=== PATIENT | male | born 1975 | race Caucasian/White ===

== ENCOUNTER 2023-04-23 14:51 | Emergency (ER) | payer OTHER ==
[~2023-04-23] VITALS: Ht 180.3 cm; Wt 72.0 kg
[2023-04-23 14:53] VITALS: TEMP 98.2
[2023-04-23] MEDS ORDERED: LIDO700A30 TP (15:21)
[2023-04-23] MEDS ORDERED: NAPR-1025 PO (15:21)
[2023-04-23] MEDS ORDERED: KETOROLAC TROMETHAMINE 30 MG/ML VIAL IM ONE (16:15)
[2023-04-23 16:20] VITALS: BP 142/86; PULSE 78; RESP 18
[2023-04-23] MEDS ORDERED: AMOX250C4 PO (16:21)
[2023-04-23] MEDS ORDERED: HYDR-4723 PO (16:22)
== END 2023-04-23 16:32 | disposition home or self-care (01) ==
LOC: EMS 14:54
DX: K08.89 Other specified disorders of teeth and supporting structures (principal)
CPT/HCPCS: 99283; 96372; J1885

== ENCOUNTER 2023-04-25 11:28 | Emergency (ER) | payer OTHER ==
[~2023-04-25] VITALS: Ht 175.3 cm; Wt 68.2 kg
[~2023-04-25 11:28] MED LIST: AMOX250C4 PO; HYDR-4723 PO; LIDO700A30 TP; NAPR-1025 PO
[2023-04-25 11:32] VITALS: TEMP 98
[2023-04-25 12:16] VITALS: BP 128/85; PULSE 78; RESP 16
[2023-04-25] MEDS ORDERED: PERCT PO ×2 (12:24→12:34)
== END 2023-04-25 13:21 | disposition home or self-care (01) ==
LOC: EMS 11:28
DX: K08.89 Other specified disorders of teeth and supporting structures (principal); Z76.0 Encounter for issue of repeat prescription
CPT/HCPCS: 99281; Z7502

== ENCOUNTER 2023-06-08 11:00 | Inpatient (IN) | payer MEDICAID, OTHER ==
[~2023-06-08] VITALS: Ht 180.3 cm; Wt 77.8 kg
[~2023-06-08 11:00] MED LIST changes: +PERCT PO
[2023-06-08 11:45] LABS: BASOPHILS % (AUTO) 1.8 % (0.0-2.0); EOSINOPHILS % (AUTO) 2.2 % (1.0-6.0); HEMOGLOBIN 9.5 g/dL (13.5-17.5); LYMPHOCYTES # (AUTO) 1.4 K/uL (1.0-4.8); LYMPHOCYTES % (AUTO) 29.1 % (22.0-44.0); MEAN CORPUSCULAR HGB CONC 28.9 G/dL (31.0-37.0); MEAN CORPUSCULAR VOLUME 66 fL (80-100); MONOCYTES # (AUTO) 0.4 K/uL (0.1-1.0); MONOCYTES % (AUTO) 8.3 % (2.0-9.0); NEUTROPHILS # (AUTO) 2.8 K/uL (1.8-7.7); NEUTROPHILS % (AUTO) 58.6 % (40.0-70.0); PLATELET COUNT (AUTO) 270 K/uL (150-450); RED BLOOD CELL COUNT(AUTO) 5.03 MIL/uL (4.50-5.90); RED CELL DISTRIBUTION WIDTH 22.6 % (11.5-14.5); WHITE BLOOD COUNT (AUTO) 4.8 K/uL (4.5-11.0)
[2023-06-08 11:53] LABS: ANION GAP 8 mmol/L (8-16); CALCIUM, TOTAL 8.9 mg/dL (8.8-10.5); CARBON DIOXIDE 28 mmol/L (22-29); CHLORIDE 105 mmol/L (98-107); CREATININE 0.99 mg/dL (0.60-1.30); GLOMERULAR FILTR. RATE CALC > 60 mL/min (>60); GLUCOSE,RANDOM 92 mg/dL (70-110); POTASSIUM 3.4 mmol/L (3.5-5.1); SODIUM SERUM 141 mmol/L (136-145); UREA NITROGEN, BLOOD 9 mg/dL (7-18)
[2023-06-08 12:00] LABS: ALANINE AMINOTRANSFERASE 25 U/L (12-78); ALBUMIN 3.4 g/dL (3.4-5.0); ALKALINE PHOSPHATASE 121 U/L (46-116); ASPARTATE AMINOTRANSFERASE 20 U/L (15-37); BILIRUBIN,TOTAL 0.5 mg/dL (0.1-1.0); CREATINE KINASE, TOTAL ONLY 51 U/L (39-308); TOTAL PROTEIN, SERUM 7.2 g/dL (6.4-8.2)
[2023-06-08 12:01] LABS: TROPONIN I-HIGH SENSITIVITY 4 ng/L (<76)
[2023-06-08 12:02] LABS: INR 1.1 (0.9-1.1)
[2023-06-08 12:05] LABS: RBC MORPHOLOGY COMMENT ABNORMAL RBC MORPH
[2023-06-08 12:11] LABS: ACETAMINOPHEN < 2 mcg/mL (10-30)
[2023-06-08 12:13] LABS: ALCOHOL, BLOOD (SERUM) < 3 mg/dL (0-10)
[2023-06-08 12:15] LABS: COVID AG,FIA SOURCE NASAL SWAB
[2023-06-08] MEDS ORDERED: KETOROLAC TROMETHAMINE 30 MG/ML VIAL IVP ONE (12:15)
[2023-06-08 12:24] LABS: SALICYLATE 0.8 mg/dL (2.8-20.0)
[2023-06-08] MEDS: KETOROLAC TROMETHAMINE 30 MG/ML VIAL IM ONE (12:32)
[2023-06-08 12:48] LABS: SARS-COV2 (COVID) ANTIGEN,FIA Negative (Negative)
[2023-06-08] MEDS: LORazepam 2 MG TABLET PO ONE (13:03)
[2023-06-08] MEDS: ACETAMINOPHEN 325 MG TABLET PO PRN (16:22)
[2023-06-08] MEDS: LORazepam 2 MG TABLET PO PRN (16:22)
[2023-06-08] MEDS: POTASSIUM CHLORIDE 20 MEQ ER TABLET PO ONE (16:38)
[2023-06-08 20:19] VITALS: BP 142/85; PULSE 97; RESP 18; TEMP 97.6; O2SAT 100
[2023-06-08] MEDS: ZOLPIDEM TARTRATE 10 MG TABLET PO PRN (21:41)
[2023-06-08] MEDS: HALOPERIDOL 5 MG TABLET PO PRN (21:42)
[2023-06-08] MEDS ORDERED: BENZOCAINE/MENTHOL LOZENGE PO PRN (21:45)
[2023-06-08] MEDS ORDERED: BACITRACIN 28 GM OINTMENT TP PRN (21:45)
[2023-06-08] MEDS ORDERED: CloNIDine HCL 0.1 MG TABLET PO PRN (21:45)
[2023-06-08] MEDS ORDERED: ALBUTEROL SULFATE HFA 90 MCG/PUFF 8 GM INHALER IH PRN (21:45)
[2023-06-08] MEDS ORDERED: OMEPRAZOLE 20 MG CAPSULE PO PRN (21:45)
[2023-06-08] MEDS ORDERED: MAGNESIUM HYDROXIDE SUSPENSION 30 ML UDCUP PO PRN (21:45)
[2023-06-08] MEDS ORDERED: PETROLATUM,WHITE 28 GM JELLY TP PRN (21:45)
[2023-06-08] MEDS ORDERED: ONDANSETRON HCL 4 MG TABLET PO PRN (21:45)
[2023-06-08] MEDS ORDERED: DOCUSATE SODIUM 100 MG CAPSULE PO PRN (21:45)
[2023-06-08] MEDS ORDERED: ACETAMINOPHEN 325 MG TABLET PO PRN (21:45)
[2023-06-08 23:20] VITALS: RESP 18
[2023-06-08] MEDS: IBUPROFEN 600 MG TABLET PO PRN (23:26)
[2023-06-09 00:20] VITALS: RESP 18
[2023-06-09] MEDS: MULTIVITAMINS WITH MINERALS, THERAPEUTIC TABLET PO SCH (09:03)
[2023-06-09 09:17] LABS: APPEARANCE,URINE TURBID (CLEAR); BILIRUBIN,URINE NEGATIVE (NEGATIVE); COLOR,URINE DARK ORANGE (YELLOW); GLUCOSE, URINE (UA) TRACE mg/dL (NEGATIVE); KETONES,URINE NEGATIVE (NEGATIVE); LEUKOCYTE ESTERASE ,URINE NEGATIVE (NEGATIVE); NITRATE,URINE NEGATIVE (NEGATIVE); OCCULT BLOOD,URINE NEGATIVE (NEGATIVE); PROTEIN,URINE 100-200,SEE CONFIRM mg/dL (NEGATIVE); SPECIFIC GRAVITIY, URINE 1.044 (1.003-1.030)
[2023-06-09 09:22] VITALS: BP 135/77; PULSE 100; RESP 17; TEMP 97.6; O2SAT 100
[2023-06-09 09:30] LABS: ALCOHOL, URINE DRUG SCREEN NEGATIVE (NEGATIVE); AMPHET/METH SCREEN,URINE NEGATIVE (NEGATIVE); BARBITURATE SCREEN, URINE NEGATIVE (NEGATIVE); BENZODIAZEPINES SCREEN,URINE POSITIVE (NEGATIVE); CANNABINOID SCREEN,URINE NEGATIVE (NEGATIVE); COCAINE SCREEN,URINE NEGATIVE (NEGATIVE); METHADONE SCREEN, URINE NEGATIVE (NEGATIVE); OPIATE SCREEN,URINE NEGATIVE (NEGATIVE); PHENCYCLIDINE SCREEN,URINE NEGATIVE (NEGATIVE)
[2023-06-09 09:35] LABS: SULFOSALICYLIC ACID,URINE 2+ (Negative)
[2023-06-09 09:36] LABS: BACTERIA,URINE None Seen /HPF (None Seen); CALCIUM OXALATE CRYSTALS,UR Moderate /LPF (None Seen); RBC,URINE None Seen /HPF (0-2); WBC,URINE None Seen /HPF (0-5)
[2023-06-09 09:37] LABS: AMORPHOUS SEDIMENT,UR Many /LPF (None Seen)
[2023-06-09 12:32] VITALS: RESP 18; O2SAT 100
[2023-06-09 13:32] VITALS: RESP 17; O2SAT 100
[2023-06-09] MEDS: LOPERAMIDE HCL 2 MG CAPSULE PO PRN (16:05)
[2023-06-09 20:40] VITALS: BP 136/83; PULSE 91; RESP 17; TEMP 97; O2SAT 100
[2023-06-10] MEDS: MAG HYDROX/ALUMINUM HYD/SIMETH ES 30 ML SUSPENSION UDCUP PO PRN (08:03)
[2023-06-10 08:23] VITALS: BP 112/72; PULSE 93; RESP 17; TEMP 97.8; O2SAT 100
[2023-06-10 08:34] LABS: POTASSIUM 3.4 mmol/L (3.5-5.1)
[2023-06-10] MEDS: INFLUENZA VIRUS VACCINE QVS 2023-24 (6MO+)/PF 60 MCG/0.5 ML SYRINGE IM. ONE (14:31)
[2023-06-10 22:54] VITALS: BP 133/83; PULSE 94; RESP 18; TEMP 97.7; O2SAT 100
[2023-06-11] MEDS: CITALOPRAM HYDROBROMIDE 20 MG TABLET PO SCH (08:11)
[2023-06-11 09:10] VITALS: BP 136/80; PULSE 90; RESP 17; TEMP 97.9; O2SAT 100
[2023-06-11 09:28] VITALS: BP 140/82; PULSE 90; RESP 17; TEMP 97.9; O2SAT 100
[2023-06-11] MEDS ORDERED: CITA-144 PO (11:11)
== END 2023-06-11 13:16 | disposition home or self-care (01) | DRG 750 ==
LOC: EMS 11:01 → B2S 15:02
PROVIDERS: ADMIT Psychiatry & Neurology Psychiatry; ATTEND Psychiatry & Neurology Psychiatry
DX: F25.9 Schizoaffective disorder, unspecified (principal); R45.851 Suicidal ideations; D64.9 Anemia, unspecified; G89.4 Chronic pain syndrome; M54.50 Low back pain, unspecified; K21.9 Gastro-esophageal reflux disease without esophagitis; K59.00 Constipation, unspecified; F41.9 Anxiety disorder, unspecified; G47.00 Insomnia, unspecified; F32.9 Major depressive disorder, single episode, unspecified; Z20.822 Contact with and (suspected) exposure to COVID-19
CPT/HCPCS: 71045; 80053; 80307; 81001; 81002; 82550; 84132; 84295; 84484; 85025; 85610; 85730; 93005; G0480; G0481; J1885; 36415-L1; 36415-TC